=== PATIENT | male | born 1930 | race Hispanic/Latino ===

== ENCOUNTER 2017-06-04 06:29 | Emergency (ER) | payer MEDICARE, MEDICAID ==
[2017-06-04] MEDS ORDERED: Ondansetron HCl/PF 4 MG/2 ML Vial ONE (06:59)
[2017-06-04] MEDS ORDERED: Ketorolac Tromethamine 30 MG/ML VIAL ONE (06:59)
[2017-06-04 07:06] LABS: #Eosinphils 0.1 thou/uL (0.0-0.7); #Lymphocytes 1.3 thou/uL (1.20-3.40); #Monocytes 0.3 thou/uL (0.11-0.59); #Neutrophils 4.7 thou/uL (1.40-6.50); %Basophils 0.2 % (0.0-1.0); %Eosinophils 1.2 % (0.0-10.0); %Lymphocytes 19.7 % (21.0-51.0); %Monocytes 4.9 % (0.0-10.0); Hemoglobin 11.6 g/dL (14.0-18.0); Mean Corpuscular HGB CONC 33.8 g/dL (32.0-36.0); Mean Corpuscular Hemoglobin 33.4 pg (27.0-31.0); Mean Corpuscular Volume 98.8 fl (80.0-94.0); Mean Platelet Volume 7.9 fL (7.4-10.4); Platelet Count 133 thou/uL (130-400); RBC Distribution Width 13.4 % (11.5-14.5); Red Blood Cell (RBC) Count 3.47 mill/uL (4.70-6.10); White Blood Cell (WBC) Count 6.4 thou/uL (4.8-10.8)
[2017-06-04 07:24] LABS: ALT (SGPT) 17 U/L (8-55); AST (SGOT) 22 U/L (5-34); Albumin 3.9 g/dL (3.4-4.8); Alkaline Phosphatase 71 U/L (40-150); Anion Gap 10 mmol/L (10-20); BUN (Urea Nitrogen) 14 mg/dL (8.4-25.7); Bilirubin, Total 0.8 mg/dL (0.2-1.2); Calc. Creatinine Clearance 0 mL/min (70-130); Carbon Dioxide 24 mmol/L (23-31); Chloride 108 mmol/L (98-107); Estimated GFR-MDRD 41; Globulin 3.3 g/dL (2.4-3.5); Glucose 118 mg/dL (83-110); Lipase 28 U/L (8-78); Protein, Total 7.2 g/dL (5.8-8.1); Sodium 138 mmol/L (136-145)
[2017-06-04 07:43] LABS: Bilirubin Negative (Negative); Blood, Urine Trace (Negative); Clarity CLEAR (Clear); Glucose, Urine (Dipstick) Negative (Negative); Leukocyte Negative (Negative); Nitrite Negative (Negative); Protein, Urine (Dipstick) 30 mg/dL (Neg-Trace); Specific Gravity, Urine 1.018 (1.002-1.036)
[2017-06-04 07:45] LABS: Bacteria/HPF None Seen HPF (None Seen); Hyaline Casts/LPF 0-3 HYALINE CAST LPF (0-3 Hyaline); Pathc Cast-AUWi Flag 0.13 (0-2.49); RBC/HPF 0-3 HPF (0-3); Squamous Epithelial None Seen HPF (0-3); WBC/HPF None Seen HPF (0-3)
--- NOTE | 2017-06-04 08:49 | CT ---
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 Pt has not been evaluated for this pain by a doctor bailee mcdowell. Also reports diarrhea. Denies n/v. Denies smoking or drinking. TECHNIQUE: Axial computed tomography images of the abdomen and pelvis without intravenous contrast. All CT scans at this facility use one or more dose reduction techniques, viz.: automated exposure control; ma/kV adjustment per patient size (including targeted exams where dose is matched to indication; i.e. head) ; or iterative reconstruction technique. Coronal reformatted images were created and reviewed. COMPARISON: No relevant prior studies available. FINDINGS: Lower thorax: Minimal dependent changes are present in the lung bases. ABDOMEN: Liver: Unremarkable. Gallbladder and bile ducts: Status post cholecystectomy. No ductal dilation. Pancreas: Unremarkable. No ductal dilation. Spleen: Unremarkable. No splenomegaly. Adrenals: Unremarkable. No mass. Kidneys and ureters: 1.8 cm left renal cyst. No obstructing stones. No hydronephrosis. Stomach and bowel: Unremarkable. No obstruction. No mucosal thickening. Appendix: The appendix is seen and is normal in appearance. PELVIS: Bladder: Unremarkable. No stones. Reproductive: Unremarkable as visualized. ABDOMEN and PELVIS: Intraperitoneal space: Unremarkable. No free air. No significant fluid collection. Bones/joints: No acute fracture. No dislocation. Soft tissues: Unremarkable. Vasculature: Vascular calcifications are present. No abdominal aortic aneurysm. Lymph nodes: Unremarkable. No enlarged lymph nodes. IMPRESSION: No definite evidence of acute abdominal or pelvic pathology. Remainder of findings as described above . Thank you for allowing us to participate in the care of your patient. Dictated and Authenticated by: Alva Calderon MD 06/04/2017 7:29 AM Central Time ([place] & [place]) FINAL REPORT CT ABDOMEN AND PELVIS NONCONTRAST: DATE: 06/04/17. TIME: Performed on emergency basis at 0658 hours. FINDINGS: No comparisons. Findings agree with the preliminary report from [facility]. There is no CT e vidence of urinary tract obstruction or calcification. Lack of contrast limits evaluation for other abnormalities. There is calcification in the arterial structures. Thinning of the cortex of each ki dney. Left renal cyst. Prior cholecystectomy. POS: [facility]
== END 2017-06-04 08:10 | disposition home or self-care (01) ==
LOC: ERS 06:29
DX: R10.33 Periumbilical pain (principal); I10 Essential (primary) hypertension; Z87.891 Personal history of nicotine dependence
CPT/HCPCS: 74176; 80053; 81003; 81015; 83690; 85025; 96374; 96375; J1885; J2405

== ENCOUNTER 2017-08-20 16:42 | Emergency (ER) | payer MEDICARE, MEDICAID | END 2017-08-20 16:45 | disposition home or self-care (01) | LOC: ERS 16:42 | DX: B02.9 Zoster without complications (principal); I10 Essential (primary) hypertension; Z87.891 Personal history of nicotine dependence | CPT/HCPCS: 99283 ==

== ENCOUNTER 2017-08-29 16:26 | Emergency (ER) | payer MEDICARE, MEDICAID ==
--- NOTE | 2017-08-29 17:27 | RAD ---
CHEST ONE VIEW: 08/29/17 COMPARISON: 05/09/12. HISTORY: Not provided. FINDINGS: left sided transvenous defibrillator with lead position right atrium, right ventricle and coronary si nus. Normal cardiac silhouette. The pulmonary vessels and hilum are normal. Costophrenic angles are c lear. Hyperinflation with chronic changes. Chronic bilateral apical pleural thickening. No pneumothor ax or osseous abnormalities. IMPRESSION: No acute cardiopulmonary process. POS: [facility]
--- NOTE | 2017-08-29 17:52 | RAD ---
LEFT HIP TWO VIEWS: 08/29/17 HISTORY: Fall. Pain. COMPARISON: 07/18/11. FINDINGS: Contour of the femoral head is maintained. Hip joint space is preserved. No fracture. Vacuum disc phe nomenon at the lumbosacral junction is noted. Osteophytes are identified. IMPRESSION: No fracture. POS: [facility]
[2017-08-29] MEDS ORDERED: HYDROcodone/Acetaminophen 5/325 mg Tablet ONE (18:15)
== END 2017-08-29 18:57 | disposition home or self-care (01) ==
LOC: ERS 16:26
DX: B02.29 Other postherpetic nervous system involvement (principal); I10 Essential (primary) hypertension; Z87.891 Personal history of nicotine dependence; Z79.899 Other long term (current) drug therapy; Z79.82 Long term (current) use of aspirin
CPT/HCPCS: 71045

== ENCOUNTER 2018-05-15 20:14 | Inpatient (IN) | payer MEDICARE, MEDICAID ==
[2018-05-15 20:40] LABS: #Lymphocytes 1.4 thou/uL (1.20-3.40); #Monocytes 0.7 thou/uL (0.11-0.59); #Neutrophils 5.2 thou/uL (1.40-6.50); %Basophils 0.3 % (0.0-1.0); %Eosinophils 0.3 % (0.0-10.0); %Lymphocytes 18.6 % (21.0-51.0); %Monocytes 10.1 % (0.0-10.0); %Neutrophils 70.7 % (42.0-75.0); Mean Corpuscular HGB CONC 31.6 g/dL (32.0-36.0); Mean Corpuscular Hemoglobin 32.3 pg (27.0-31.0); Mean Platelet Volume 8.4 fL (7.4-10.4); Platelet Count 128 thou/uL (130-400); Red Blood Cell (RBC) Count 4.01 mill/uL (4.70-6.10); White Blood Cell (WBC) Count 7.3 thou/uL (4.8-10.8)
[2018-05-15 21:00] LABS: ALT (SGPT) 10 U/L (8-55); AST (SGOT) 22 U/L (5-34); Albumin 4.1 g/dL (3.4-4.8); Alkaline Phosphatase 79 U/L (40-150); Anion Gap 16 mmol/L (10-20); BUN (Urea Nitrogen) 16 mg/dL (8.4-25.7); Bilirubin, Total 1.1 mg/dL (0.2-1.2); CK (CPK) 254 U/L (30-200); Calc. Creatinine Clearance 0 mL/min (70-130); Calcium 10.7 mg/dL (7.8-10.44); Carbon Dioxide 21 mmol/L (23-31); Chloride 105 mmol/L (98-107); Estimated GFR-MDRD 42; Globulin 3.6 g/dL (2.4-3.5); Glucose 93 mg/dL (83-110); Potassium 3.8 mmol/L (3.5-5.1); Protein, Total 7.7 g/dL (5.8-8.1); Sodium 138 mmol/L (136-145)
--- NOTE | 2018-05-15 21:16 | RAD ---
SINGLE VIEW CHEST: 05/15/18 COMPARISON: 08/29/17 INDICATION: Altered mental status. FINDINGS: Left sided AICD remains. There is hyperinflation of lungs with interstitial prominence. No effusion o r discrete pneumothorax. IMPRESSION: COPD. No focal consolidation. Interstitial prominence may relate to edema or interstitial lung disease. Correlate clinically and as necessary imaging followup may be obtained. POS: [facility]
[2018-05-15 21:22] LABS: CKMB 3.9 ng/mL (0-6.6)
[2018-05-15] MEDS ORDERED: cefTRIAXone\\ROCEPHIN 1 GM VIAL ONE (21:38)
[2018-05-15] MEDS ORDERED: Acetaminophen 500 MG TAB ONE (21:38)
[2018-05-15] MEDS ORDERED: Azithromycin 500 MG VIAL ONE (21:38)
[2018-05-15 21:40] LABS: Bilirubin Negative (Negative); Blood, Urine Moderate (Negative); Clarity CLEAR (Clear); Glucose, Urine (Dipstick) Negative (Negative); Leukocyte Negative (Negative); Nitrite Negative (Negative); Protein, Urine (Dipstick) 100 mg/dL (Neg-Trace); Specific Gravity, Urine 1.021 (1.002-1.036)
[2018-05-15 21:43] LABS: Bacteria/HPF None Seen HPF (None Seen); Hyaline Casts/LPF 0-3 HYALINE CAST LPF (0-3 Hyaline); Pathc Cast-AUWi Flag 0.58 (0-2.49); Squamous Epithelial 0-3 HPF (0-3); WBC/HPF 0-3 HPF (0-3)
--- NOTE | 2018-05-15 21:46 | CT ---
CT OF THE BRAIN WITHOUT CONTRAST: 05/15/18 INDICATION: Altered mental status with right and left lower extremity weakness. FINDINGS: There is mucosal thickening of the ethmoid air cells. There is partial effusion involving the right m astoid air cells. Skull is intact. No acute infarct, hemorrhage or hydrocephalus is present. Septum pellucidum and third ventricle are m idline. IMPRESSION: 1. No acute intracranial abnormality. 2. Mild paranasal sinus disease with partial effusion of the right mastoid air cells. POS: [facility]
--- NOTE | 2018-05-15 22:05 | PDOC.FPRHP ---
- History of Present Illness Chief Complaint: AMS History of Present Illness: The patient is an 88 YOM with a PMH significant for CAD, HTN, and an 40 pack year smoking history who presented to the ED due to the urging of his family for AMS that began around 17:00 on the date of presentation. Per the family the patient had been out of town visiting [place] for the last week and after getting home around 17:00 they noticed that he was talking about his bus ride and not making sense at all. They also reported that he was muttering to himself and the last time he behaved this way he had a UTI. So they decided to take him to the ER for further evaluation to ensure an infection wasn't causing his AMS. The family also reports that the patient has had a cough for the last week. The patient reports that the cough has been productive of green phlegm but denies any chest pain, SOB, or fever. He did endorse feeling cold. Family also reported that the patient did, in fact, endorse some SOB and generalized fatigue before being treated in the ED. The patient denied any recent sick contacts and the family stated that he has had a good appetite since returning home. ED Course: 1g PO tylenol, 1L NS, Rocephin & azithromycin - Allergies/Adverse Reactions Allergies Allergy/AdvReac Type Severity Reaction Status Date / Time No Known Allergies Allergy Verified 05/16/18 02:49 - Home Medications Medication Instructions Recorded Confirmed Type Aspirin 325 mg PO DAILY 08/29/16 05/16/18 History Carvedilol 25 mg PO BID 08/29/16 05/16/18 History Clopidogrel Bisulfate [Plavix] 75 mg PO DAILY 08/29/16 05/16/18 History Levothyroxine Sodium 75 mg PO DAILY 08/29/16 05/16/18 History Lisinopril 20 mg PO DAILY 08/29/16 05/16/18 History Simvastatin 40 mg PO QPM 08/29/16 05/16/18 History Esomeprazole Magnesium [NexIUM] 40 mg PO DAILY 05/16/18 05/16/18 History Mirtazapine [Remeron] 15 mg PO HS 05/16/18 05/16/18 History Systane Gel Eye Drop 10 ml 1 - 2 drop EA EYE ASDIR PRN 05/16/18 05/16/18 History [Systane Gel Overnight Therapy] - History PMHx: CAD, glaucoma, HTN, hypothyroidism, BPH, GERD PSHx: AICD placement FHx: Heart disease on both sides of family. Social: Lives at home alone in [place]. ~40 pack year smoking history but no EtOH or drug use. - Review of Systems General: reports: fever/chills, fatigue. denies: weight/appetite/sleep changes Eyes: denies: eye pain, vision changes ENT: reports: other (no sore throat). denies: nasal congestion, rhinorrhea Respiratory: reports: cough, shortness of breath. denies: congestion Cardiovascular: denies: chest pain, edema Gastrointestinal: denies: nausea, vomiting, diarrhea, constipation Genitourinary: reports: dysuria, other (no hematuria) Skin: denies: rashes Musculoskeletal: denies: swelling, arthritis/arthralgias Neurological: denies: numbness, seizure, weakness Psychological: denies: anxiety, depression - Vital signs BP: 113/66 HR: 86 RR: 28 Tmax: 100F Pox: 94% on RA Wt: - Physical Exam Constitutional: NAD, well developed, other (A&Ox2) HEENT: normocephalic and atraumatic, conjunctiva clear, no scleral icterus, grossly normal vision, grossly normal hearing, MMM, oropharynx clear Neck: supple, FROM Heart: RRR, normal S1/S2, no murmurs/rubs/gallops, pulses present, no edema Lungs: good air movement, other (Mild tachypnea w/ end expiratory wheezing heard on L>R) Abdomen: soft, non-tender, bowel sounds present, no masses/distention Musculoskeletal: normal structure, normal tone, ROM grossly normal Neurological: no focal deficit, CN II-XII intact (grossly) Skin: no rash/lesions, capillary refill <2 seconds Heme/Lymphatic: no unusual bruising or bleeding, no purpura Psychiatric: normal mood and affect, intact recent and remote memory FMR H&P: Results - Labs Result Diagrams: 05/15/18 20:27 05/16/18 02:57 Lab results: WBC 7.3 thou/uL (4.8-10.8) 05/15/18 20:27 Hgb 13.0 g/dL (14.0-18.0) L 05/15/18 20:27 Hct 41.0 % (42.0-52.0) L 05/15/18: MCV 102.0 fL (78.0-98.0) H 05/15/18: Plt Count 128 thou/uL (130-400) L 05/15/18 20: Neutrophils % 70.7 % (42.0-75.0) 05/15/18 20: Sodium 138 mmol/L (136-145) 05/15/18: Potassium 3.8 mmol/L (3.5-5.1) 05/15/18: Chloride 105 mmol/L (98-107) 05/15/18: Carbon Dioxide 21 mmol/L (23-31) L 05/15/18: BUN 16 mg/dL (8.4-25.7) 05/15/18: Creatinine 1.56 mg/dL (0.7-1.3) H 05/15/18: Glucose 93 mg/dL (83-110) 05/15/18: Lactic Acid 1.4 mmol/L (0.5-2.2) 05/15/18: Calcium 10.7 mg/dL (7.8-10.44) H 05/15/18: Total Bilirubin 1.1 mg/dL (0.2-1.2) 05/15/18: AST 22 U/L (5-34) 05/15/18: ALT 10 U/L (8-55) 05/15/18: Alkaline Phosphatase 79 U/L (40-150) 05/15/18: Creatine Kinase 254 U/L (30-200) H 05/15/18: CK-MB (CK-2) 3.9 ng/mL (0-6.6) 05/15/18: B-Natriuretic Peptide 143.7 pg/mL (0-100) H 05/15/18: Serum Total Protein 7.7 g/dL (5.8-8.1) 05/15/18: Albumin 4.1 g/dL (3.4-4.8) 05/15/18: Urine Ketones Trace mg/dL (Negative) H 05/15/18 21:30 Urine Blood Moderate (Negative) H 05/15/18 21:30 Urine Nitrite Negative (Negative) 05/15/18 21:30 Ur Leukocyte Esterase Negative (Negative) 05/15/18 21:30 Urine RBC 4-6 HPF (0-3) 05/15/18 21:30 Urine WBC 0-3 HPF (0-3) 05/15/18 21:30 Ur Squamous Epith Cells 0-3 HPF (0-3) 05/15/18 21:30 Urine Bacteria None Seen HPF (None Seen) 05/15/18 21:30 - Radiology Interpretation Chest x-ray Status: image reviewed by me, report reviewed by me (COPD w/ no focal consolidation. Possible ILD.) CT scan - head Status: report reviewed by me (no acute IC findings) FMR H&P: A/P - Problem List (1) COPD with acute exacerbation Current Visit: Yes Status: Suspected Code(s): J44.1 - CHRONIC OBSTRUCTIVE PULMONARY DISEASE W (ACUTE) EXACERBATION (2) Benign prostatic hyperplasia Current Visit: No Status: Chronic Code(s): N40.0 - BENIGN PROSTATIC HYPERPLASIA WITHOUT LOWER URINRY TRACT SYMP (3) Coronary artery disease Current Visit: No Status: Chronic Code(s): I25.10 - ATHSCL HEART DISEASE OF [place] CORONARY ARTERY W/O ANG PCTRS (4) Hypothyroidism Current Visit: No Status: Chronic Code(s): E03.9 - HYPOTHYROIDISM, UNSPECIFIED (5) Glaucoma Current Visit: No Status: Chronic Code(s): H40.9 - UNSPECIFIED GLAUCOMA (6) Macrocytic anemia Current Visit: Yes Status: Chronic Code(s): D53.9 - NUTRITIONAL ANEMIA, UNSPECIFIED (7) Elevated troponin Current Visit: Yes Status: Acute Code(s): R74.8 - ABNORMAL LEVELS OF OTHER SERUM ENZYMES (8) HTN (hypertension) Current Visit: Yes Status: Acute Code(s): I10 - ESSENTIAL (PRIMARY) HYPERTENSION (9) CKD (chronic kidney disease) stage 3, GFR 30-59 ml/min Current Visit: Yes Status: Acute Code(s): N18.3 - CHRONIC KIDNEY DISEASE, STAGE 3 (MODERATE) - Plan Acute hypoxic respiratory failure 2/2 suspected COPD exacerbation: - Patient presented with AMS w/ associated cough w/ increased sputum production and acute hypoxic respiratory failure requiring NC to maintain adequate O2 sats. Given significant smoking history and CXR findings, mostly likely 2/2 COPD exacerbation from bronchitis or URI. - Will treat acute exacerbation as described below and continue supplemental O2 PRN to maintain sats > 88%. Will wean as tolerated by patient. Suspected acute on chronic COPD exacerbation: - Will continue PRN & BAKARI Duonebs, PO steroids, and azithromycin. - Will continue PRN O2 to maintain sats >88% & wean as tolerated. Macrocytic anemia: - Hgb of 13 w/ MCV of 102 on admission. Could be 2/2 vitamin deficiency that could also be contributing to AMS. - Will check B12 and RBC folate levels. Indeterminate troponin: - Initial trop slightly elevated but downtrended on repeat check. - Likely 2/2 demand ischemia from tachypnea and hypoxia. CKD stage III: - Cr 1.56 w/ an eGFR of 42 on admission which is within patient's baseline range per chart review. - Will renally dose meds PRN. - Will continue to monitor w/ QD BMPs. HFrEF: - Last echo showed an EF of 30-35% requiring AICD placement. - BNP at this visit is not convincing for CHF exacerbation & CXR did not suggest pulmonary congestion. - Will continue gentle IVFs PRN & order fluid restriction for 2000mL QD. - Will resume home meds. HTN: - Aware, will resume home meds. HLD: - Aware, will resume home meds. hypothyroidism: - Will resume home meds. CAD: - Aware, will resume home meds. BPH: - Aware, will resume home meds. GERD: - Will resume home meds. Glaucoma: - Aware FMR H&P: Upper Level - Pertinent history 88M presents for evaluation of AMS. 1 week prior to admission, had productive cough. He was in [place], traveled here today when daughter noted he was acting strange, his conversation didn't make sense. Per family, he is now back to his baseline while resting at ER. One of his complaint on presentation to ER was "couldn't walk" but family state that he was just feeling weak all over and he was seen o be walking in ER without difficulty. - Pertinent findings Gen: Alert, oriented x3 HEENT: Normocephalic, midline trachea. Hearing and vision grossly intact, moist mucosal membrane CV: RRR with no apparent m/g/r Resp: Wheeezing heard throughout. GI: Normoactive, not tender Ext: No pitting edema noted Derm: No skin breaks seen. Neuro: CN II-XII grossly intact. Sensation grossly intact. Strength 5/5 in upper and lower ext. Patient able to ambulate without assist. - Plan Date/Time: 05/15/18 [id number] I, [Jaguar Sue], have evaluated this patient and agree with findings/plan as outlined by industrial engineering intern resident. Pertinent changes/additions are listed here. 1. COPD exacerbation - CXR not suggestive of infection. - Patient with history of tobacco use, 1 week of productive cough, wheezing on exam, possible cause of his weakness. - Plan, treat with steroid, abx, duoneb, o2. 2. Hypercalcemia: - Just above upper limit after albumin correction - Continue work up pending next morning lab 3. Indeterminate trop - Downtrending. - Likely demand ischemia from problem 1 4. Stage III CKD - Unchanged from previous visit. 5. Hx CHFrEF - Last echo was 30-35%, requiring AICD placement - BNP at this visit is not convincing for CHF, no PE finding for it, but CXR did suggest pulmonary congestion - Gentle fluid as needed, fluid restriction for 2000. 6. Macrocytic anemia - Possible cause of weakness - Will obtain b12/folate 6. HTN - Chronic issue. Continue home med 7. HLD - CHronic issue, continue home med 8. Depression - Chronic issue, continue home med 9. GERD - Chronic issue, continue home med Addendum - Attending - Attending Attestation Date/Time: 05/16/18 7221 I personally evaluated the patient and discussed the management with Dr. Zhang and Linette on 05/15. I agree with and repeated the History, Examination, Assessment and Plan documented above with any addition or exceptions noted below. On exam the patient is in no distress, no inc wob; he was poor air movement but no sig wheezes on my exam. Will treat empirically for COPD exac and consider broadening for PNA, although his evaluation does not suggest that. His lab abnormalities are noted and we will repeat his TnI, monitor his fluid status, and repeat his BMP in the AM. We cannot rule out a previous neurologic event and may consider additional imaging pending clinical course.
[2018-05-15] MEDS ORDERED: Ondansetron ODT 4 MG TAB PO PRN (23:32)
[2018-05-15] MEDS ORDERED: Acetaminophen 325 MG TAB PO PRN (23:32)
[2018-05-16 00:02] LABS: Troponin I 0.027 ng/mL (< 0.028)
[2018-05-16] MEDS ORDERED: Haloperidol Lactate 5 MG/ML VIAL ONE (03:29)
[2018-05-16] MEDS ORDERED: Haloperidol Lactate 5 MG/ML VIAL IM PRN (03:35)
[2018-05-16 03:45] LABS: Anion Gap 11 mmol/L (10-20); BUN (Urea Nitrogen) 15 mg/dL (8.4-25.7); Calc. Creatinine Clearance 0 mL/min (70-130); Calcium 9.5 mg/dL (7.8-10.44); Carbon Dioxide 22 mmol/L (23-31); Chloride 110 mmol/L (98-107); Estimated GFR-MDRD 45; Glucose 97 mg/dL (83-110); Potassium 3.7 mmol/L (3.5-5.1); Sodium 139 mmol/L (136-145)
[2018-05-16] MEDS ORDERED: Haloperidol Lactate 5 MG/ML VIAL IM SCH (03:45)
--- NOTE | 2018-05-16 05:34 | PDOC.FM ---
- Subjective Subjective: Daughter in the room this morning, Ms Grijalva. States that when her father returned home from seeing her brother in [place] yesterday evening, he was speaking non-sensically. States that he is still not back to baseline. She is most concerned about a stroke. Discussed that he does not appear to have a pneumonia at this time. - Objective Vital Signs & Weight: Vital Signs (12 hours) Temp Pulse Resp BP Pulse Ox 05/16/18 02:26 69 16 96 05/16/18 02:21 98 05/16/18 01:10 97.6 F 72 20 133/64 98 Result Diagrams: 05/15/18 20:27 05/16/18 02:57 Phys Exam - Physical Examination Constitutional: NAD HEENT: moist MMs Neck: no nodes, supple Respiratory: no wheezing, clear to auscultation bilateral Cardiovascular: RRR, no significant murmur Gastrointestinal: soft, non-tender, no distention, positive bowel sounds Musculoskeletal: pulses present trace edema Neurological: non-focal, moves all 4 limbs strength 5/5 in upper and lower extremities Psychiatric: normal affect Skin: no rash, normal turgor, cap refill <2 seconds Dx/Plan (1) COPD with acute exacerbation Code(s): J44.1 - CHRONIC OBSTRUCTIVE PULMONARY DISEASE W (ACUTE) EXACERBATION Status: Acute (2) HFrEF (heart failure with reduced ejection fraction) Code(s): I50.20 - UNSPECIFIED SYSTOLIC (CONGESTIVE) HEART FAILURE Status: Chronic (3) CKD (chronic kidney disease) stage 3, GFR 30-59 ml/min Code(s): N18.3 - CHRONIC KIDNEY DISEASE, STAGE 3 (MODERATE) Status: Acute (4) Hypercalcemia Code(s): E83.52 - HYPERCALCEMIA Status: Acute (5) HLD (hyperlipidemia) Code(s): E78.5 - HYPERLIPIDEMIA, UNSPECIFIED Status: Chronic (6) Depression Code(s): F32.9 - MAJOR DEPRESSIVE DISORDER, SINGLE EPISODE, UNSPECIFIED Status : Chronic (7) GERD (gastroesophageal reflux disease) Code(s): K21.9 - GASTRO-ESOPHAGEAL REFLUX DISEASE WITHOUT ESOPHAGITIS Status: Chronic (8) Elevated troponin Code(s): R74.8 - ABNORMAL LEVELS OF OTHER SERUM ENZYMES Status: Chronic (9) HTN (hypertension) Code(s): I10 - ESSENTIAL (PRIMARY) HYPERTENSION Status: Chronic (10) Macrocytic anemia Code(s): D53.9 - NUTRITIONAL ANEMIA, UNSPECIFIED Status: Chronic (11) Hypothyroidism Code(s): E03.9 - HYPOTHYROIDISM, UNSPECIFIED Status: Chronic (12) Elevated CK Status: Acute - Plan Plan: #Acute encephalopathy -No signs infection, acute delirium vs possible acute hypercapnic encephalopathy from COPD exacerbation -Daughter reports he is still not back to baseline, however he received haldol last night for acute episode delirium/ing -blood cx pending # COPD exacerbation -RA this AM - CXR not suggestive of infection, procal neg - Patient with history of tobacco use, 1 week of productive cough, wheezing on exam, possible cause of his weakness. - Plan, treat with steroid, azithromycin, duoneb, o2. # Hypercalcemia, resolved - Just above upper limit after albumin correction - Normal this AM # Indeterminate trop - Stable - Likely demand ischemia from CHFrEF # Stage III CKD - Unchanged from previous visit. #Elevated CK -slight dehydration possible, or possible 2/2 CKD -received 1L in ED -Most likely cause of "blood" in UA, w/o RBC present # Hx CHFrEF - Last echo was 30-35%, requiring AICD placement - BNP at this visit is not convincing for CHF, no PE finding for it, but CXR did suggest pulmonary congestion - Gentle fluid as needed, fluid restriction for 2000. # Macrocytic anemia - Most likely 2/2 renal disease or hypothyroid - B12 normal, folate pending # HTN - Chronic issue. Continue home med # HLD - Chronic issue, continue home med # Depression - Chronic issue, continue home med # GERD - Chronic issue, continue home med #Hypothyroid -TSH WNL Code status: Full Dispo: admitted to tele Diet: HH, fluid restrict to 2 L Addendum - Attending - Attending Attestation Date/Time: 05/16/18 1232 I personally evaluated the patient and discussed the management with Dr. Calvillo. I agree with the History, Examination, Assessment and Plan documented above with any addition or exceptions noted below. Patient here for altered mentation and aggression. Current workup negative overall, anticipate this is likely underlying dementia with some worsening due to either medication effect, toxic encephalopathy, or infectious. Will contine abx and await cx results. Pharmacy checking to see if any recent med changes were made. Haldol as needed for agitation and pending further workup.
[2018-05-16] MEDS: Levothyroxine Sodium 75 MCG TAB PO SCH (05:50)
[2018-05-16 06:34] VITALS: BMI 21.4
[2018-05-16] MEDS: Carvedilol 25 MG TAB PO SCH ×2 (10:38→20:31)
[2018-05-16] MEDS: predniSONE 20 MG TAB PO SCH (10:38)
[2018-05-16] MEDS: Azithromycin 250 MG TAB PO SCH (10:38)
[2018-05-16] MEDS: Aspirin 325 MG TAB PO SCH (10:38)
[2018-05-16] MEDS: Clopidogrel Bisulfate 75 MG TAB PO SCH (10:38)
[2018-05-16] MEDS: Lisinopril 20 MG TAB PO SCH (10:38)
[2018-05-16] MEDS ORDERED: Lidocaine 2% Jelly 5 ML TUBE TOP PRN (11:25)
[2018-05-16] MEDS ORDERED: Lidocaine 2% 11 ML SYR TOP PRN (12:00)
[2018-05-16] MEDS ORDERED: Atorvastatin Calcium 20 MG TAB PO SCH (21:00)
[2018-05-16] MEDS ORDERED: Mirtazapine 15 MG Soltab PO SCH (21:00)
--- NOTE | 2018-05-17 05:45 | PDOC.FM ---
- Subjective Subjective: Patient feeling well this morning. States he can't see well out of his left eye. - Objective Vital Signs & Weight: Vital Signs (12 hours) Temp Pulse Resp BP Pulse Ox 05/17/18 04:00 97.5 F L 70 19 117/59 L 97 05/16/18 23:34 94 L 05/16/18 23:21 97.6 F 70 20 112/57 L 97 05/16/18 20:00 97.9 F 74 20 105/53 L 92 L 05/16/18 18:52 96 05/16/18 18:51 96 Weight Weight 62.777 kg I&O: 05/15/18 05/16/18 05/17/18 06:59 06:59 06:59 Intake Total 600 Output Total 200 Balance 400 Result Diagrams: 05/15/18 20:27 05/16/18 02:57 Phys Exam - Physical Examination Constitutional: NAD L eye pupil is crum, Rt eye pupil with abnormal shape Neck: no nodes, supple Respiratory: no wheezing, clear to auscultation bilateral Cardiovascular: RRR, no significant murmur Gastrointestinal: soft, non-tender, no distention Musculoskeletal: no edema, pulses present Neurological: moves all 4 limbs Psychiatric: normal affect Deviation from normal: Oriented to self and place Skin: no rash, normal turgor Dx/Plan (1) COPD with acute exacerbation Code(s): J44.1 - CHRONIC OBSTRUCTIVE PULMONARY DISEASE W (ACUTE) EXACERBATION Status: Acute (2) HFrEF (heart failure with reduced ejection fraction) Code(s): I50.20 - UNSPECIFIED SYSTOLIC (CONGESTIVE) HEART FAILURE Status: Chronic (3) CKD (chronic kidney disease) stage 3, GFR 30-59 ml/min Code(s): N18.3 - CHRONIC KIDNEY DISEASE, STAGE 3 (MODERATE) Status: Acute (4) Hypercalcemia Code(s): E83.52 - HYPERCALCEMIA Status: Acute (5) HLD (hyperlipidemia) Code(s): E78.5 - HYPERLIPIDEMIA, UNSPECIFIED Status: Chronic (6) Depression Code(s): F32.9 - MAJOR DEPRESSIVE DISORDER, SINGLE EPISODE, UNSPECIFIED Status : Chronic (7) GERD (gastroesophageal reflux disease) Code(s): K21.9 - GASTRO-ESOPHAGEAL REFLUX DISEASE WITHOUT ESOPHAGITIS Status: Chronic (8) Elevated troponin Code(s): R74.8 - ABNORMAL LEVELS OF OTHER SERUM ENZYMES Status: Chronic (9) HTN (hypertension) Code(s): I10 - ESSENTIAL (PRIMARY) HYPERTENSION Status: Chronic (10) Macrocytic anemia Code(s): D53.9 - NUTRITIONAL ANEMIA, UNSPECIFIED Status: Chronic (11) Hypothyroidism Code(s): E03.9 - HYPOTHYROIDISM, UNSPECIFIED Status: Chronic (12) Elevated CK Status: Acute - Plan Plan: #Acute encephalopathy -No signs infection, acute delirium vs possible acute hypercapnic encephalopathy from COPD exacerbation, suspect patient may need outpatient O2, continue to wean O2 as tolerated -blood cx pending, NGTD -Daughter not at bedside to report if he is back to baseline # COPD exacerbation -1 L BNC this AM - CXR not suggestive of infection, procal neg - Patient with history of tobacco use, 1 week of productive cough, wheezing on exam, possible cause of his weakness. - Continue steroid, azithromycin, duoneb, o2. # Hypercalcemia, resolved # Indeterminate trop - Stable - Likely demand ischemia from CHFrEF # Stage III CKD - Unchanged from previous visit. #Elevated CK -slight dehydration possible, or possible 2/2 CKD -received 1L in ED -Most likely cause of "blood" in UA, w/o RBC present # Hx CHFrEF - Last echo was 30-35%, requiring AICD placement - BNP at this visit is not convincing for CHF, no PE finding for it, but CXR did suggest pulmonary congestion - fluid restriction for 1999. # Macrocytic anemia - Most likely 2/2 renal disease or hypothyroid - B12 normal, folate pending # HTN - Chronic issue. Continue home med # HLD - Chronic issue, continue home med # Depression - Chronic issue, continue home med # GERD - Chronic issue, continue home med #Hypothyroid -TSH WNL Code status: Full Dispo: possible discharge today Diet: HH, fluid restrict to 2 L Addendum - Attending - Attending Attestation Date/Time: 05/17/18 1050 I personally evaluated the patient and discussed the management with Dr. Calvillo. I agree with the History, Examination, Assessment and Plan documented above with any addition or exceptions noted below. Patient doing well, making sense and logical this morning. Wait to speak with family regarding if he appears at baseline. Overall workup negative for causes of encephalopathy other than possibly hypoxia. Will treat for COPD and work to see if he needs O2 on discharge. If family feels he is at baseline, he can likely be discharged later today.
[2018-05-17] MEDS: Levothyroxine Sodium 75 MCG TAB PO SCH (06:00)
[2018-05-17] MEDS: Aspirin 325 MG TAB PO SCH (08:22)
[2018-05-17] MEDS: Lisinopril 20 MG TAB PO SCH (08:22)
[2018-05-17] MEDS: Carvedilol 25 MG TAB PO SCH (08:23)
[2018-05-17] MEDS: predniSONE 20 MG TAB PO SCH (08:23)
[2018-05-17] MEDS: Azithromycin 250 MG TAB PO SCH (08:24)
[2018-05-17] MEDS: Clopidogrel Bisulfate 75 MG TAB PO SCH (08:24)
[2018-05-17] MEDS ORDERED: Benzonatate 100 MG CAP PO PRN (12:39)
[2018-05-17 14:25] LABS: Folate,Hemolysate 343.8 ng/mL (Not Estab.); Hematocrit 30.3 % (37.5-51.0); RBC Folate Test Component 1135 ng/mL (>498)
[2018-05-17 15:50] VITALS: BP 112/55; TEMP 98.2
--- NOTE | 2018-05-18 18:22 | EKG ---
Test Reason : Blood Pressure : / mmHG Vent. Rate : 096 BPM Atrial Rate : 096 BPM P-R Int : 128 ms QRS Dur : 170 ms QT Int : 418 ms P-R-T Axes : 056 -66 055 degrees QTc Int : 528 ms Electronic ventricular pacemaker Left axis deviation Left ventricular hypertrophy Confirmed by JOI HAMEED, BENITO Cardona ([id number]), features editor RONALD ORTIZ ([id number]) on 05/18/2018 6:22:21 PM Referred By: Confirmed By:BENITO TAMEZ MD
--- NOTE | 2018-05-20 10:14 | DIS ---
DATE OF ADMISSION: 05/15/2018 DATE OF DISCHARGE: 05/17/2018 ADMITTING ATTENDING: Dr. Newsome. DISCHARGE ATTENDING: Dr. Newsome. CONSULTS: None. PROCEDURES: 1. Brain CT, 05/15/2018, impression; no acute intracranial abnormality. 2. Chest x-ray, 05/15/2018, impression; COPD. No focal consolidation. Interstitial prominence may relate to edema or interstitial lung disease, correlate clinically. PRIMARY DIAGNOSES: 1. Acute encephalopathy secondary to hypercapnic encephalopathy from chronic obstructive pulmonary disease exacerbation. 2. Chronic obstructive pulmonary disease exacerbation. SECONDARY DIAGNOSES: 1. Hypercalcemia. 2. Indeterminate troponin. 3. Stage 3 chronic kidney disease. 4. Elevated CK. 5. History of CHF-REF. 6. Microcytic anemia. 7. Hypertension. 8. Hyperlipidemia. 9. Depression. 10. Gastroesophageal reflux disease. 11. Hypothyroid. 12. Viral URI DISCHARGE MEDICATIONS: 1. Azithromycin 250 mg p.o. daily for two more days. 2. Lidocaine 15 gm, apply thin layer to affected areas daily for postherpetic neuralgia. 3. Dulera two puffs b.i.d. 4. Prednisone 40 mg p.o. daily for the next two days for a total of five days. 5. Simvastatin 40 mg p.o. daily. 6. Lisinopril 20 mg p.o. daily. 7. Levothyroxine 75 mcg p.o. daily. 8. Plavix 75 mg p.o. daily. 9. Carvedilol 25 mg p.o. b.i.d. 10. Aspirin 325 mg p.o. daily. 11. Mirtazapine 15 mg p.o. at bedtime. 12. Esomeprazole 40 mg p.o. daily. 13. Systane gel eye drop, 1 to 2 drops to each eye as needed for dry eye. HISTORY OF PRESENT ILLNESS AND HOSPITAL COURSE: The patient is an 88-year-old male with past medical history significant for coronary artery disease, hypertension , and [id number] smoking history, who presented to the ED for altered mental status that began around 1700 on the day of presentation. Per the family, the patient had been out of town visiting [place] for the last week and after getting home, they noticed that his conversations were not making sense and he would mutter to himself. The family reported the last time he acted this way, he had a UTI. They took him to the ED. Family also reports that the patient has had a cough for the past week. They report that the cough has been productive, but he denied any chest pain, shortness of breath , or fever. Pt endorsed feeling cold. Family also reported that the patient did endorse some shortness of breath and generalized fatigue prior to being treated in the ED. The patient denied any recent sick contacts and family stated that he has been eating well. In the ED, he was given 1 g p.o. Tylenol, 1 L of normal saline , started on Rocephin and azithromycin. The patient was found to be in an acute COPD exacerbation and was started on oxygen, which was weaned during his time here. His labs and symptoms suggested a viral URI as cause of COPD exacerbation, as his procalcitonin was negative. He was started on a five-day course of steroid and azithromycin with p.r.n. DuoNeb. He was tested via walking with pulse oximetry for need for outpatient oxygen: he maintained his sats 88% and above on room air while walking. Therefore he did not qualify for home oxygen. Daughter reported prior to discharge that his mental status was back to baseline. The patient had a slight hypercalcemia and elevated CK, which resolved with fluids. The patient has a history of congestive heart failure with reduced ejection fraction. Last echo showed ejection fraction of 30% to 35%, requiring AICD placement. BNP was not elevated at this time, and there is no physical exam finding suggestive of fluid overload, but chest x-ray did suggest pulmonary congestion. The patient was placed on fluid restriction diet. DISPOSITION: Stable. DISCHARGE INSTRUCTIONS: 1. Location; home. 2. Diet; heart healthy, fluid restrict to 2000 mL per day. 3. Activity as tolerated. 4. Follow up with Dr. Bacon within 7 days. Job ID: [id number] [facility]
== END 2018-05-17 17:01 | disposition home or self-care (01) | DRG 189 ==
LOC: ERS 20:14 → 2NO 21:30
PROVIDERS: ADMIT Emergency Medicine; ATTEND Emergency Medicine
DX: J96.01 Acute respiratory failure with hypoxia (principal); J44.1 Chronic obstructive pulmonary disease with (acute) exacerbation; I13.0 Hypertensive heart and chronic kidney disease with heart failure and stage 1 through stage 4 chronic kidney disease, or unspecified chronic kidney disease; I50.22 Chronic systolic (congestive) heart failure; I24.8 Other forms of acute ischemic heart disease; G93.49 Other encephalopathy; E83.52 Hypercalcemia; D53.9 Nutritional anemia, unspecified; N18.3 Chronic kidney disease, stage 3 (moderate); I12.9 Hypertensive chronic kidney disease with stage 1 through stage 4 chronic kidney disease, or unspecified chronic kidney disease; F17.210 Nicotine dependence, cigarettes, uncomplicated; N40.0 Benign prostatic hyperplasia without lower urinary tract symptoms; I25.10 Atherosclerotic heart disease of native coronary artery without angina pectoris; E03.9 Hypothyroidism, unspecified; H40.9 Unspecified glaucoma; F32.9 Major depressive disorder, single episode, unspecified; K21.9 Gastro-esophageal reflux disease without esophagitis; Z79.02 Long term (current) use of antithrombotics/antiplatelets; Z79.82 Long term (current) use of aspirin; Z79.899 Other long term (current) drug therapy; Z95.810 Presence of automatic (implantable) cardiac defibrillator
CPT/HCPCS: 36415; 36416; 70450; 71045; 80048; 80053; 81003; 81015; 82550; 82553; 82607; 82747; 83605; 83880; 84145; 84443; 84484; 85014; 85025; 87040; 93005; 94640; 96361; 96365; 96366; J0456; J0696; J1630; J7620

== ENCOUNTER 2018-09-12 13:36 | Outpatient (CLI) | payer MEDICARE, MEDICAID ==
--- NOTE | 2018-09-12 13:52 | RAD ---
Radiograph left hip 2 views: HISTORY: 88-year-old male with nontraumatic left hip pain FINDINGS: Severe disc space narrowing, vacuum joint phenomenon, and large right-sided endplate osteophytosis, a t lumbosacral junction. Left femoral head contour is normal. No subcapital or large acetabular osteophytes. No fracture or di slocation. Hip joint space is maintained. Sclerotic changes at left SI joint. IMPRESSION: 1. Normal left hip. 2. Severe degenerative disc disease at lumbosacral junction.
== END 2018-09-12 13:37 | disposition home or self-care (01) ==
LOC: BICRAD 13:36
PROVIDERS: ATTEND Family Medicine
DX: M25.552 Pain in left hip (principal); M51.37 Other intervertebral disc degeneration, lumbosacral region

== ENCOUNTER 2020-11-30 13:49 | Outpatient (CLI) | payer MEDICARE, MEDICAID | END 2020-11-30 13:50 | disposition home or self-care (01) | LOC: BICRAD 13:49 | PROVIDERS: ATTEND Family Medicine | DX: M25.552 Pain in left hip (principal); M54.14 Radiculopathy, thoracic region; M47.816 Spondylosis without myelopathy or radiculopathy, lumbar region | CPT/HCPCS: 72100 ==